=== PATIENT | female | born 1935 | race Caucasian/White ===

== ENCOUNTER 2025-01-31 10:48 | Inpatient (IN) | payer BC, MEDICARE ==
[~2025-01-31] VITALS: Ht 154.9 cm; Wt 32.9 kg
[2025-01-31 11:34] VITALS: TEMP 97.7
[2025-01-31 12:40] LABS: BASOPHILS % 0.5 % (0.0-1.0); HEMATOCRIT 38.3 % (34.2-44.1); HEMOGLOBIN 12.6 g/dL (12.0-16.0); LYMPHOCYTES # (AUTO) 0.8 (1.0-3.2); LYMPHOCYTES % 13.5 % (18.0-39.1); MEAN CORPUSCULAR HEMOGLOBIN 30.1 pg (28-32); MEAN CORPUSCULAR HGB CONC 32.9 g/dL (31-35); MEAN CORPUSCULAR VOLUME 91.6 fL (81-99); MONOCYTES # (AUTO) 0.2 (0.2-0.8); MONOCYTES % 3.7 % (4.4-11.3); NEUTROPHILS # (AUTO) 4.7 (2.1-6.9); NEUTROPHILS % 82.1 % (38.7-80.0); PLATELET COUNT 139 x10e3/uL (140-360); RED BLOOD COUNT 4.18 x10e6/uL (3.6-5.1); RED CELL DISTRIBUTION WIDTH 14.7 % (11.7-14.4); WHITE BLOOD COUNT 5.69 x10e3/uL (4.8-10.8)
[2025-01-31 12:46] LABS: INR 1.02
[2025-01-31 12:47] LABS: PARTIAL THROMBOPLASTIN TIME 27.5 seconds (23.8-35.5)
[2025-01-31 12:55] LABS: ALBUMIN 3.5 g/dL (3.5-5.0); CALCIUM 9.9 mg/dL (8.4-10.2); CREATININE, SERUM 0.82 mg/dL (0.57-1.11); MAGNESIUM 2.1 MG/DL (1.3-2.1); TOTAL PROTEIN 7.1 g/dL (6.5-8.1)
[2025-01-31 13:02] LABS: TROPONIN I 0.011 ng/mL (0-0.300)
[2025-01-31] MEDS: DEXTROSE 50% SYRINGE 50 ML IV STA (13:07)
[2025-01-31] MEDS: ONDANSETRON HCL INJ 2MG/ML 2ML 2 MG/ML VIAL IV STA (13:07)
[2025-01-31] MEDS: SODIUM CHLORIDE 0.9% 1000ML 1,000 ML IV STA (13:08)
[2025-01-31] MEDS ORDERED: DEXTROSE 50% SYRINGE 50 ML IV ONE (13:11)
[2025-01-31] MEDS ORDERED: ONDANSETRON HCL INJ 2MG/ML 2ML 2 MG/ML VIAL IV PRN ×2 (13:30→20:15)
[2025-01-31 14:16] VITALS: PULSE 50; RESP 18
[2025-01-31] MEDS: DEXTROSE 5%/0.45% SOD CHL 1,000 ML IV SCH (14:45)
[2025-01-31 15:40] VITALS: BP 112/68; PULSE 51; RESP 18; TEMP 97.4; O2SAT 99
[2025-01-31 16:00] VITALS: BP 126/64; PULSE 42; RESP 17; TEMP 97.4; O2SAT 99
[2025-01-31] MEDS ORDERED: MEMANTINE HCL10 MG PO (18:27)
[2025-01-31] MEDS ORDERED: DONEPEZIL HCL10 MG PO (18:27)
[2025-01-31] MEDS ORDERED: ACETAMINOPHEN 325 MG TAB PO PRN (20:15)
[2025-01-31] MEDS ORDERED: HYDRALAZINE HCL 20 MG/ML VIAL IV PRN (20:15)
[2025-01-31 21:00] VITALS: BP 136/50; PULSE 44; RESP 17; TEMP 97.6; O2SAT 100
[2025-01-31] MEDS: MEMANTINE 10 MG TAB PO SCH (21:43)
[2025-01-31] MEDS: DONEPEZIL HCL 5 MG TAB PO SCH (21:43)
[2025-02-01] VITALS (8 sets, daily range): BP systolic 105–138; BP diastolic 53–77; PULSE 46–56; RESP 17–18; TEMP 97–98.1; O2SAT 95–100
[2025-02-01 06:06] LABS: BASOPHILS % 0.6 % (0.0-1.0); EOSINOPHILS % 0.4 % (0.0-6.0); HEMATOCRIT 37.6 % (34.2-44.1); HEMOGLOBIN 12.5 g/dL (12.0-16.0); LYMPHOCYTES # (AUTO) 1.1 (1.0-3.2); LYMPHOCYTES % 20.1 % (18.0-39.1); MEAN CORPUSCULAR HEMOGLOBIN 30.5 pg (28-32); MEAN CORPUSCULAR HGB CONC 33.2 g/dL (31-35); MEAN CORPUSCULAR VOLUME 91.7 fL (81-99); MONOCYTES # (AUTO) 0.3 (0.2-0.8); MONOCYTES % 6.3 % (4.4-11.3); NEUTROPHILS # (AUTO) 3.9 (2.1-6.9); NEUTROPHILS % 72.4 % (38.7-80.0); PLATELET COUNT 110 x10e3/uL (140-360); RED CELL DISTRIBUTION WIDTH 14.6 % (11.7-14.4); WHITE BLOOD COUNT 5.42 x10e3/uL (4.8-10.8)
[2025-02-01 06:34] LABS: CHOL/HDL RATIO 3.6 (3.0-3.6); PHOSPHORUS 2.2 MG/DL (2.3-4.7)
[2025-02-01 06:36] LABS: ALBUMIN 3.1 g/dL (3.5-5.0); ALBUMIN/GLOBULIN RATIO 0.9 (0.8-2.0); ANION GAP 14.3 mmol/L (8-16); CALCIUM 9.1 mg/dL (8.4-10.2); CREATININE, SERUM 0.68 mg/dL (0.57-1.11); TOTAL PROTEIN 6.5 g/dL (6.5-8.1)
[2025-02-01 06:37] LABS: POTASSIUM 3.3 mmol/L (3.5-5.1)
[2025-02-01 06:59] LABS: FREE T4 (FREE THYROXINE) 0.89 ng/dL (0.8-1.8); THYROID STIMULATING HORMONE 0.196 uIU/mL (0.350-4.940)
[2025-02-01] MEDS: DEXTROSE 50% SYRINGE 50 ML IV STA (07:37)
[2025-02-01] MEDS: DEXTROSE 50% SYRINGE 50 ML IV ONE (08:56)
[2025-02-01] MEDS ORDERED: POTASSIUM PHOSPHATE 15 MM in SODIUM CHLORIDE 0.9% 250ML 250 ML IV SCH (10:00)
[2025-02-01] MEDS: POTASSIUM PHOSPHATE 15 MM in SODIUM CHLORIDE 0.9% 250ML 250 ML IV ONE (10:54)
[2025-02-01 13:43] LABS: BILIRUBIN,URINE SMALL (NEGATIVE); CLARITY,URINE SL CLOUDY (CLEAR); COLOR,URINE YELLOW (YELLOW); GLUCOSE, URINE 500 (NEGATIVE); KETONES,URINE TRACE (NEGATIVE); LEUKOCYTE ESTERASE ,URINE TRACE (NEGATIVE); NITRITE,URINE NEGATIVE (NEGATIVE); PH,URINE 5.5 (5 - 7); PROTEIN,URINE DIPSTICK NEGATIVE (NEGATIVE); URINE UROBILINOGEN 1 mg/dL (0.2 - 1)
[2025-02-01 14:01] LABS: BACTERIA,URINE FEW /HPF; EPITHELIAL CELLS,URINE MANY /LPF; RBC,URINE 0-5 /HPF (0-5)
[2025-02-01 14:02] LABS: MUCUS,URINE MANY
[2025-02-01] MEDS: DONEPEZIL HCL 5 MG TAB PO ONE (18:37)
[2025-02-01] MEDS: LORAZEPAM INJ 2 MG/ML VIAL IV ONE (23:24)
[2025-02-02] VITALS: BP 148/84; PULSE 59; RESP 17; TEMP 97.8; O2SAT 100
[2025-02-02 04:00] VITALS: BP 162/106; PULSE 102; RESP 18; TEMP 97.5; O2SAT 100; O2SAT 96
[2025-02-02 07:18] LABS: ANION GAP 13.1 mmol/L (8-16); CALCIUM 9.1 mg/dL (8.4-10.2); CREATININE, SERUM 0.68 mg/dL (0.57-1.11); PHOSPHORUS 1.6 MG/DL (2.3-4.7)
[2025-02-02 07:22] LABS: POTASSIUM 3.1 mmol/L (3.5-5.1)
[2025-02-02 09:15] VITALS: BP 140/93; PULSE 99; RESP 18; TEMP 97; O2SAT 100
[2025-02-02] MEDS: POTASSIUM CHLORIDE 20MEQ/100ML 100 ML IV ONE (15:29)
[2025-02-02 17:11] VITALS: BP 103/60; PULSE 55; RESP 19; TEMP 97.7; O2SAT 100
[2025-02-02] MEDS: MUPIROCIN 2% OINT 22 GM TUBE TOP SCH (20:56)
[2025-02-02] MEDS: DONEPEZIL HCL 5 MG TAB PO SCH (20:57)
[2025-02-03] VITALS (8 sets, daily range): BP systolic 95–139; BP diastolic 46–67; PULSE 52–95; RESP 17–18; TEMP 97.4–98; O2SAT 96–100
[2025-02-03 08:57] LABS: BASOPHILS % 0.5 % (0.0-1.0); EOSINOPHILS % 0.7 % (0.0-6.0); HEMATOCRIT 34.5 % (34.2-44.1); HEMOGLOBIN 11.8 g/dL (12.0-16.0); LYMPHOCYTES # (AUTO) 1.1 (1.0-3.2); LYMPHOCYTES % 25.6 % (18.0-39.1); MEAN CORPUSCULAR HEMOGLOBIN 30.6 pg (28-32); MEAN CORPUSCULAR HGB CONC 34.2 g/dL (31-35); MEAN CORPUSCULAR VOLUME 89.4 fL (81-99); MONOCYTES # (AUTO) 0.3 (0.2-0.8); MONOCYTES % 7.3 % (4.4-11.3); NEUTROPHILS # (AUTO) 2.7 (2.1-6.9); NEUTROPHILS % 65.7 % (38.7-80.0); PLATELET COUNT 106 x10e3/uL (140-360); RED BLOOD COUNT 3.86 x10e6/uL (3.6-5.1); RED CELL DISTRIBUTION WIDTH 14.5 % (11.7-14.4)
[2025-02-03 09:16] LABS: ANION GAP 10.9 mmol/L (8-16); BLOOD UREA NITROGEN < 5 mg/dL (7-26); CALCIUM 8.4 mg/dL (8.4-10.2); CARBON DIOXIDE 25 mmol/L (22-29); CHLORIDE 100 mmol/L (98-107); CREATININE, SERUM 0.66 mg/dL (0.57-1.11); EST GLOMERULAR FILTRATION RATE 84 ML/MIN (>=60); GLUCOSE 190 mg/dL (74-118); SODIUM 133 mmol/L (136-145)
[2025-02-03 09:20] LABS: BUN/CREATININE RATIO 8 (6-25); POTASSIUM 2.9 mmol/L (3.5-5.1)
[2025-02-03] MEDS: MUPIROCIN 2% OINT 22 GM TUBE TOP SCH (10:15)
[2025-02-03 12:51] LABS: MAGNESIUM 1.5 MG/DL (1.3-2.1); PHOSPHORUS 1.5 MG/DL (2.3-4.7)
[2025-02-03] MEDS: MAGNESIUM SULFATE 2GM/50ML 50 ML IV ONE (13:54)
[2025-02-03] MEDS: SODIUM PHOSPHATE 15 MMOL in SODIUM CHLORIDE 0.9% 250ML 250 ML IV ONE (14:50)
[2025-02-03] MEDS: MAGNESIUM SULF 1GRAM/DEXTROSE 100 ML IV ONE (15:37)
[2025-02-03] MEDS: POTASSIUM CHLORIDE 20MEQ/100ML 100 ML IV ONE ×2 (20:44→23:30)
[2025-02-04] VITALS (9 sets, daily range): BP systolic 137–142; BP diastolic 47–75; PULSE 60–109; RESP 17–18; TEMP 96.7–97.8; O2SAT 95–100
[2025-02-04 06:04] LABS: BASOPHILS % 0.4 % (0.0-1.0); EOSINOPHILS % 0.4 % (0.0-6.0); HEMATOCRIT 35.6 % (34.2-44.1); HEMOGLOBIN 12.3 g/dL (12.0-16.0); LYMPHOCYTES # (AUTO) 0.9 (1.0-3.2); LYMPHOCYTES % 18.7 % (18.0-39.1); MEAN CORPUSCULAR HEMOGLOBIN 30.7 pg (28-32); MEAN CORPUSCULAR HGB CONC 34.6 g/dL (31-35); MEAN CORPUSCULAR VOLUME 88.8 fL (81-99); MONOCYTES # (AUTO) 0.4 (0.2-0.8); MONOCYTES % 7.3 % (4.4-11.3); NEUTROPHILS # (AUTO) 3.6 (2.1-6.9); PLATELET COUNT 113 x10e3/uL (140-360); RED BLOOD COUNT 4.01 x10e6/uL (3.6-5.1); RED CELL DISTRIBUTION WIDTH 14.5 % (11.7-14.4); WHITE BLOOD COUNT 4.91 x10e3/uL (4.8-10.8)
[2025-02-04 06:24] LABS: ANION GAP 13.5 mmol/L (8-16); BLOOD UREA NITROGEN < 5 mg/dL (7-26); CALCIUM 8.4 mg/dL (8.4-10.2); CARBON DIOXIDE 25 mmol/L (22-29); CHLORIDE 105 mmol/L (98-107); CREATININE, SERUM 0.64 mg/dL (0.57-1.11); EST GLOMERULAR FILTRATION RATE 85 ML/MIN (>=60); GLUCOSE 101 mg/dL (74-118); MAGNESIUM 2.3 MG/DL (1.3-2.1); POTASSIUM 3.5 mmol/L (3.5-5.1); SODIUM 140 mmol/L (136-145)
[2025-02-04 06:43] LABS: BUN/CREATININE RATIO 8 (6-25)
[2025-02-04] MEDS: POTASSIUM CHLORIDE 10MEQ EA PO ONE (09:32)
[2025-02-04] MEDS: POTASSIUM PHOSPHATE 15 MM in SODIUM CHLORIDE 0.9% 250ML 250 ML IV ONE (10:57)
[2025-02-05] VITALS (13 sets, daily range): BP systolic 125–149; BP diastolic 70–88; PULSE 59–90; RESP 17–20; TEMP 96.6–98.8; O2SAT 97–100
[2025-02-05 06:44] LABS: BASOPHILS % 0.4 % (0.0-1.0); EOSINOPHILS % 0.6 % (0.0-6.0); HEMATOCRIT 34.1 % (34.2-44.1); HEMOGLOBIN 11.7 g/dL (12.0-16.0); LYMPHOCYTES % 20.9 % (18.0-39.1); MEAN CORPUSCULAR HEMOGLOBIN 30.7 pg (28-32); MEAN CORPUSCULAR HGB CONC 34.3 g/dL (31-35); MEAN CORPUSCULAR VOLUME 89.5 fL (81-99); MONOCYTES # (AUTO) 0.4 (0.2-0.8); MONOCYTES % 8.1 % (4.4-11.3); NEUTROPHILS # (AUTO) 3.2 (2.1-6.9); NEUTROPHILS % 68.3 % (38.7-80.0); PLATELET COUNT 104 x10e3/uL (140-360); RED BLOOD COUNT 3.81 x10e6/uL (3.6-5.1); RED CELL DISTRIBUTION WIDTH 14.5 % (11.7-14.4); WHITE BLOOD COUNT 4.69 x10e3/uL (4.8-10.8)
[2025-02-05 06:56] LABS: ALANINE AMINOTRANSFERASE 11 IU/L (0-55); ALKALINE PHOSPHATASE 45 IU/L (40-150); ANION GAP 10.3 mmol/L (8-16); BILIRUBIN,TOTAL 0.7 mg/dL (0.2-1.2); BLOOD UREA NITROGEN < 5 mg/dL (7-26); CALCIUM 8.6 mg/dL (8.4-10.2); CARBON DIOXIDE 26 mmol/L (22-29); CHLORIDE 104 mmol/L (98-107); EST GLOMERULAR FILTRATION RATE 86 ML/MIN (>=60); GLUCOSE 85 mg/dL (74-118); PHOSPHORUS 2.3 MG/DL (2.3-4.7); SODIUM 137 mmol/L (136-145)
[2025-02-05 07:05] LABS: BUN/CREATININE RATIO 8 (6-25); POTASSIUM 3.3 mmol/L (3.5-5.1)
[2025-02-05] MEDS: POTASSIUM CHLORIDE 20MEQ/100ML 100 ML IV ONE (09:54)
[2025-02-06] VITALS (13 sets, daily range): BP systolic 94–140; BP diastolic 50–81; PULSE 52–95; RESP 16–18; TEMP 97.3–98.8; O2SAT 97–100
[2025-02-07] VITALS (14 sets, daily range): BP systolic 108–129; BP diastolic 47–81; PULSE 45–62; RESP 15–18; TEMP 97.5–98.8; O2SAT 94–100
[2025-02-07 14:00] LABS: ANION GAP 11.5 mmol/L (8-16); CALCIUM 8.7 mg/dL (8.4-10.2); CREATININE, SERUM 0.68 mg/dL (0.57-1.11); POTASSIUM 3.5 mmol/L (3.5-5.1)
[2025-02-08] VITALS (17 sets, daily range): BP systolic 111–149; BP diastolic 53–72; PULSE 46–73; RESP 16–18; TEMP 97.2–97.8; O2SAT 98–100
[2025-02-08 06:39] LABS: BASOPHILS % 0.6 % (0.0-1.0); EOSINOPHILS % 0.6 % (0.0-6.0); HEMATOCRIT 32.3 % (34.2-44.1); LYMPHOCYTES # (AUTO) 1.2 (1.0-3.2); LYMPHOCYTES % 22.6 % (18.0-39.1); MEAN CORPUSCULAR HEMOGLOBIN 30.4 pg (28-32); MEAN CORPUSCULAR HGB CONC 34.1 g/dL (31-35); MEAN CORPUSCULAR VOLUME 89.2 fL (81-99); MONOCYTES # (AUTO) 0.4 (0.2-0.8); MONOCYTES % 8.1 % (4.4-11.3); NEUTROPHILS # (AUTO) 3.5 (2.1-6.9); NEUTROPHILS % 67.7 % (38.7-80.0); PLATELET COUNT 98 x10e3/uL (140-360); RED BLOOD COUNT 3.62 x10e6/uL (3.6-5.1); RED CELL DISTRIBUTION WIDTH 14.8 % (11.7-14.4); WHITE BLOOD COUNT 5.09 x10e3/uL (4.8-10.8)
[2025-02-08 07:22] LABS: ALBUMIN 2.9 g/dL (3.5-5.0); ANION GAP 12.1 mmol/L (8-16); CALCIUM 8.7 mg/dL (8.4-10.2); CREATININE, SERUM 0.68 mg/dL (0.57-1.11); MAGNESIUM 1.6 MG/DL (1.3-2.1); TOTAL PROTEIN 5.7 g/dL (6.5-8.1)
[2025-02-08 07:34] LABS: POTASSIUM 3.1 mmol/L (3.5-5.1)
[2025-02-08] MEDS: ENOXAPARIN SOD INJ 40 MG/0.4 ML SYR SC SCH (08:26)
[2025-02-08] MEDS ORDERED: CENTRAL TPN FORMULA 1 BAG IV SCH (20:00)
[2025-02-08] MEDS: CENTRAL TPN FORMULA 1 BAG IV SCH (20:57)
[2025-02-09] VITALS (15 sets, daily range): BP systolic 88–131; BP diastolic 52–69; PULSE 58–88; RESP 16–18; TEMP 97–98.1; O2SAT 95–100
[2025-02-09 09:46] LABS: BASOPHILS % 0.4 % (0.0-1.0); EOSINOPHILS % 0.2 % (0.0-6.0); HEMATOCRIT 32.1 % (34.2-44.1); HEMOGLOBIN 11.1 g/dL (12.0-16.0); LYMPHOCYTES # (AUTO) 0.7 (1.0-3.2); LYMPHOCYTES % 15.3 % (18.0-39.1); MEAN CORPUSCULAR HEMOGLOBIN 30.7 pg (28-32); MEAN CORPUSCULAR HGB CONC 34.6 g/dL (31-35); MEAN CORPUSCULAR VOLUME 88.7 fL (81-99); MONOCYTES # (AUTO) 0.4 (0.2-0.8); MONOCYTES % 8.3 % (4.4-11.3); NEUTROPHILS # (AUTO) 3.5 (2.1-6.9); NEUTROPHILS % 75.6 % (38.7-80.0); PLATELET COUNT 114 x10e3/uL (140-360); RED BLOOD COUNT 3.62 x10e6/uL (3.6-5.1); RED CELL DISTRIBUTION WIDTH 14.9 % (11.7-14.4); WHITE BLOOD COUNT 4.58 x10e3/uL (4.8-10.8)
[2025-02-09 12:42] LABS: ANION GAP 12.2 mmol/L (8-16); CREATININE, SERUM 0.62 mg/dL (0.57-1.11); POTASSIUM 3.2 mmol/L (3.5-5.1)
[2025-02-09 12:43] LABS: MAGNESIUM 1.9 MG/DL (1.3-2.1); PHOSPHORUS 2.1 MG/DL (2.3-4.7); TOTAL PROTEIN 5.9 g/dL (6.5-8.1)
[2025-02-09] MEDS: POTASSIUM CHLORIDE 20MEQ/100ML 100 ML IV ONE (13:51)
[2025-02-09] MEDS: POTASSIUM PHOSPHATE 15 MM in SODIUM CHLORIDE 0.9% 250ML 250 ML IV ONE (16:44)
[2025-02-10] VITALS (17 sets, daily range): BP systolic 99–140; BP diastolic 48–77; PULSE 58–69; RESP 16–18; TEMP 97.5–98.6; O2SAT 96–100
[2025-02-10 06:48] LABS: BASOPHILS % 0.6 % (0.0-1.0); EOSINOPHILS % 0.9 % (0.0-6.0); HEMATOCRIT 31.9 % (34.2-44.1); LYMPHOCYTES # (AUTO) 0.7 (1.0-3.2); LYMPHOCYTES % 21.4 % (18.0-39.1); MEAN CORPUSCULAR HEMOGLOBIN 30.7 pg (28-32); MEAN CORPUSCULAR HGB CONC 34.5 g/dL (31-35); MEAN CORPUSCULAR VOLUME 89.1 fL (81-99); MONOCYTES # (AUTO) 0.3 (0.2-0.8); MONOCYTES % 10.7 % (4.4-11.3); NEUTROPHILS # (AUTO) 2.1 (2.1-6.9); NEUTROPHILS % 66.1 % (38.7-80.0); PLATELET COUNT 110 x10e3/uL (140-360); RED BLOOD COUNT 3.58 x10e6/uL (3.6-5.1); RED CELL DISTRIBUTION WIDTH 15.1 % (11.7-14.4); WHITE BLOOD COUNT 3.18 x10e3/uL (4.8-10.8)
[2025-02-10 07:10] LABS: ALBUMIN 2.8 g/dL (3.5-5.0); ANION GAP 8.2 mmol/L (8-16); CALCIUM 8.5 mg/dL (8.4-10.2); CREATININE, SERUM 0.58 mg/dL (0.57-1.11); POTASSIUM 4.2 mmol/L (3.5-5.1); TOTAL PROTEIN 5.7 g/dL (6.5-8.1)
[2025-02-10 09:27] LABS: INR 1.09; PROTHROMBIN TIME 14.8 seconds (11.9-14.5)
[2025-02-11] VITALS (15 sets, daily range): BP systolic 93–143; BP diastolic 44–100; PULSE 59–106; RESP 16–20; TEMP 97.4–98.8; O2SAT 90–100
[2025-02-11 06:09] LABS: BASOPHILS % 0.4 % (0.0-1.0); EOSINOPHILS % 0.4 % (0.0-6.0); HEMATOCRIT 30.9 % (34.2-44.1); HEMOGLOBIN 10.5 g/dL (12.0-16.0); LYMPHOCYTES # (AUTO) 0.6 (1.0-3.2); LYMPHOCYTES % 13.3 % (18.0-39.1); MEAN CORPUSCULAR HEMOGLOBIN 30.3 pg (28-32); MEAN CORPUSCULAR VOLUME 89.3 fL (81-99); MONOCYTES # (AUTO) 0.5 (0.2-0.8); MONOCYTES % 10.2 % (4.4-11.3); NEUTROPHILS # (AUTO) 3.4 (2.1-6.9); NEUTROPHILS % 75.5 % (38.7-80.0); PLATELET COUNT 109 x10e3/uL (140-360); RED BLOOD COUNT 3.46 x10e6/uL (3.6-5.1); RED CELL DISTRIBUTION WIDTH 15.3 % (11.7-14.4)
[2025-02-11 06:44] LABS: ALBUMIN 2.7 g/dL (3.5-5.0); ANION GAP 10.3 mmol/L (8-16); BILIRUBIN,TOTAL 0.9 mg/dL (0.2-1.2); CALCIUM 8.6 mg/dL (8.4-10.2); CREATININE, SERUM 0.58 mg/dL (0.57-1.11); PHOSPHORUS 1.9 MG/DL (2.3-4.7); POTASSIUM 4.3 mmol/L (3.5-5.1); TOTAL PROTEIN 5.5 g/dL (6.5-8.1)
[2025-02-11] MEDS: SODIUM CHLORIDE 0.9% 1000ML 500 ML IV ONE (20:27)
[2025-02-12] VITALS (10 sets, daily range): BP systolic 99–128; BP diastolic 42–91; PULSE 51–77; RESP 18–21; TEMP 97.3–98.5; O2SAT 90–100
[2025-02-12] MEDS: CENTRAL TPN FORMULA 1 BAG IV SCH (20:16)
[2025-02-13] VITALS (8 sets, daily range): BP systolic 94–127; BP diastolic 44–87; PULSE 50–149; RESP 12–19; TEMP 97.5–98.3; O2SAT 91–100
[2025-02-13 10:36] LABS: BASOPHILS % 0.3 % (0.0-1.0); EOSINOPHILS % 0.2 % (0.0-6.0); HEMOGLOBIN 9.1 g/dL (12.0-16.0); LYMPHOCYTES # (AUTO) 0.6 (1.0-3.2); MEAN CORPUSCULAR HEMOGLOBIN 30.5 pg (28-32); MEAN CORPUSCULAR HGB CONC 32.5 g/dL (31-35); MONOCYTES # (AUTO) 0.5 (0.2-0.8); MONOCYTES % 8.7 % (4.4-11.3); NEUTROPHILS # (AUTO) 4.9 (2.1-6.9); NEUTROPHILS % 80.3 % (38.7-80.0); PLATELET COUNT 93 x10e3/uL (140-360); RED BLOOD COUNT 2.98 x10e6/uL (3.6-5.1); RED CELL DISTRIBUTION WIDTH 15.6 % (11.7-14.4); WHITE BLOOD COUNT 6.09 x10e3/uL (4.8-10.8)
[2025-02-13] MEDS ORDERED: FENTANYL CITRATE/PF 100MCG/2 ML INJ ONE (19:07)
[2025-02-13] MEDS ORDERED: EPHEDRINE SULFATE INJ 50 MG/ML VIAL ONE (19:07)
[2025-02-13] MEDS ORDERED: ESMOLOL HCL 100MG/10ML 10 MG/ML VIAL ONE (19:07)
[2025-02-13] MEDS ORDERED: PROPOFOL IV EMULSION 10 MG/ML 20 ML VIAL ONE (19:07)
[2025-02-13] MEDS: CENTRAL TPN FORMULA 1 BAG IV SCH (20:38)
[2025-02-14] VITALS (9 sets, daily range): BP systolic 86–98; BP diastolic 47–64; PULSE 55–117; RESP 17–20; TEMP 97.5–98.8; O2SAT 92–100
[2025-02-14 00:45] LABS: ANION GAP 13.6 mmol/L (8-16); CALCIUM 9.1 mg/dL (8.4-10.2); CREATININE, SERUM 0.68 mg/dL (0.57-1.11); POTASSIUM 4.6 mmol/L (3.5-5.1)
[2025-02-14 00:46] LABS: MAGNESIUM 1.9 MG/DL (1.3-2.1); PHOSPHORUS 2.2 MG/DL (2.3-4.7)
[2025-02-14] MEDS: SODIUM CHLORIDE 0.9% 250ML 250 ML IV ONE (01:23)
[2025-02-14] MEDS ORDERED: NACL IV ONE (02:30)
[2025-02-14] MEDS ORDERED: SODIUM PHOSPHATE IV ONE (02:30)
[2025-02-14] MEDS ORDERED: KETOROLAC TROMETHAMINE 30 MG/ML VIAL IM PRN (09:45)
[2025-02-14] MEDS: KETOROLAC TROMETHAMINE 30 MG/ML VIAL IV PRN (10:35)
[2025-02-14] MEDS: SODIUM PHOSPHATE 15 MMOL in SODIUM CHLORIDE 0.9% 250ML 250 ML IV ONE (10:36)
[2025-02-14] MEDS: SODIUM CHLORIDE 0.9% 1000ML 250 ML IV ONE (18:46)
[2025-02-15] VITALS (7 sets, daily range): BP systolic 97–125; BP diastolic 45–86; PULSE 18–70; RESP 18–19; TEMP 97.4–98.2; O2SAT 92–97
[2025-02-16] VITALS (7 sets, daily range): BP systolic 102–142; BP diastolic 49–73; PULSE 64–111; RESP 17–20; TEMP 97–98.4; O2SAT 95–100
[2025-02-16 06:55] LABS: BASOPHILS % 0.3 % (0.0-1.0); EOSINOPHILS % 0.4 % (0.0-6.0); HEMATOCRIT 25.4 % (34.2-44.1); HEMOGLOBIN 8.9 g/dL (12.0-16.0); LYMPHOCYTES # (AUTO) 0.6 (1.0-3.2); LYMPHOCYTES % 9.2 % (18.0-39.1); MEAN CORPUSCULAR HEMOGLOBIN 31.1 pg (28-32); MEAN CORPUSCULAR VOLUME 88.8 fL (81-99); MONOCYTES # (AUTO) 0.5 (0.2-0.8); MONOCYTES % 7.4 % (4.4-11.3); NEUTROPHILS # (AUTO) 5.6 (2.1-6.9); NEUTROPHILS % 82.3 % (38.7-80.0); PLATELET COUNT 135 x10e3/uL (140-360); RED BLOOD COUNT 2.86 x10e6/uL (3.6-5.1); RED CELL DISTRIBUTION WIDTH 15.8 % (11.7-14.4); WHITE BLOOD COUNT 6.75 x10e3/uL (4.8-10.8)
[2025-02-16 07:04] LABS: ALBUMIN/GLOBULIN RATIO 0.6 (0.8-2.0); ANION GAP 10.5 mmol/L (8-16); BILIRUBIN,TOTAL 0.5 mg/dL (0.2-1.2); CALCIUM 8.4 mg/dL (8.4-10.2); CREATININE, SERUM 0.59 mg/dL (0.57-1.11); POTASSIUM 4.5 mmol/L (3.5-5.1); TOTAL PROTEIN 5.1 g/dL (6.5-8.1)
[2025-02-16] MEDS: ALTEPLASE RECOMBINANT 2 MG/2 ML VIAL IV ONE (17:31)
[2025-02-17] VITALS (8 sets, daily range): BP systolic 97–116; BP diastolic 51–97; PULSE 51–68; RESP 16–19; TEMP 97–98; O2SAT 95–99
[2025-02-17] MEDS: ZIPRASIDONE 20 MG VIAL IM ONE (04:40)
[2025-02-17] MEDS: SODIUM CHLORIDE 0.9% 250ML 250 ML ONE (05:47)
[2025-02-17 07:25] LABS: PREALBUMIN 5 mg/dL (9-32)
[2025-02-18] VITALS (8 sets, daily range): BP systolic 108–125; BP diastolic 52–68; PULSE 63–73; RESP 14–18; TEMP 97–98; O2SAT 95–100
[2025-02-18 06:32] LABS: BASOPHILS % 0.7 % (0.0-1.0); EOSINOPHILS # (AUTO) 0.1 (0.0-0.4); EOSINOPHILS % 1.1 % (0.0-6.0); HEMATOCRIT 28.1 % (34.2-44.1); HEMOGLOBIN 9.4 g/dL (12.0-16.0); LYMPHOCYTES # (AUTO) 0.5 (1.0-3.2); LYMPHOCYTES % 9.5 % (18.0-39.1); MEAN CORPUSCULAR HEMOGLOBIN 30.2 pg (28-32); MEAN CORPUSCULAR HGB CONC 33.5 g/dL (31-35); MEAN CORPUSCULAR VOLUME 90.4 fL (81-99); MONOCYTES # (AUTO) 0.7 (0.2-0.8); MONOCYTES % 11.9 % (4.4-11.3); NEUTROPHILS # (AUTO) 4.3 (2.1-6.9); NEUTROPHILS % 76.4 % (38.7-80.0); PLATELET COUNT 199 x10e3/uL (140-360); RED BLOOD COUNT 3.11 x10e6/uL (3.6-5.1); RED CELL DISTRIBUTION WIDTH 15.5 % (11.7-14.4); WHITE BLOOD COUNT 5.56 x10e3/uL (4.8-10.8)
[2025-02-18 07:05] LABS: ALBUMIN 2.1 g/dL (3.5-5.0); ALBUMIN/GLOBULIN RATIO 0.6 (0.8-2.0); ANION GAP 11.2 mmol/L (8-16); BILIRUBIN,TOTAL 0.6 mg/dL (0.2-1.2); CALCIUM 8.4 mg/dL (8.4-10.2); CREATININE, SERUM 0.59 mg/dL (0.57-1.11); POTASSIUM 4.2 mmol/L (3.5-5.1); TOTAL PROTEIN 5.5 g/dL (6.5-8.1)
[2025-02-19] VITALS (8 sets, daily range): BP systolic 109–130; BP diastolic 37–113; PULSE 65–110; RESP 14–19; TEMP 96–97.6; O2SAT 91–99
[2025-02-19 06:42] LABS: BASOPHILS % 0.3 % (0.0-1.0); EOSINOPHILS % 0.4 % (0.0-6.0); HEMATOCRIT 26.8 % (34.2-44.1); HEMOGLOBIN 9.2 g/dL (12.0-16.0); LYMPHOCYTES # (AUTO) 0.6 (1.0-3.2); LYMPHOCYTES % 8.9 % (18.0-39.1); MEAN CORPUSCULAR HEMOGLOBIN 30.5 pg (28-32); MEAN CORPUSCULAR HGB CONC 34.3 g/dL (31-35); MEAN CORPUSCULAR VOLUME 88.7 fL (81-99); MONOCYTES # (AUTO) 0.8 (0.2-0.8); MONOCYTES % 11.4 % (4.4-11.3); NEUTROPHILS # (AUTO) 5.4 (2.1-6.9); NEUTROPHILS % 78.4 % (38.7-80.0); PLATELET COUNT 230 x10e3/uL (140-360); RED BLOOD COUNT 3.02 x10e6/uL (3.6-5.1); RED CELL DISTRIBUTION WIDTH 15.5 % (11.7-14.4); WHITE BLOOD COUNT 6.87 x10e3/uL (4.8-10.8)
[2025-02-19 07:15] LABS: ANION GAP 12.1 mmol/L (8-16); CALCIUM 8.6 mg/dL (8.4-10.2); CREATININE, SERUM 0.58 mg/dL (0.57-1.11); MAGNESIUM 1.6 MG/DL (1.3-2.1); PHOSPHORUS 2.7 MG/DL (2.3-4.7); POTASSIUM 4.1 mmol/L (3.5-5.1)
[2025-02-19] MEDS: ZINC SULFATE 220 MG CAP GT SCH (09:50)
[2025-02-19] MEDS: MAGNESIUM SULFATE 2GM/50ML 50 ML IV ONE (09:51)
[2025-02-19] MEDS ORDERED: RISPERIDONE 0.5 MG TAB PO PRN (18:15)
[2025-02-19] MEDS: RISPERIDONE 1 MG TAB PO SCH (18:38)
[2025-02-20] MEDS: ZIPRASIDONE 20 MG VIAL IM ONE ×2 (03:14)
[2025-02-20 07:55] VITALS: BP 117/51; PULSE 72; RESP 18; TEMP 97.5; O2SAT 98
[2025-02-20 08:27] VITALS: BP 117/51; PULSE 72; RESP 18; TEMP 97.5; O2SAT 98
[2025-02-20 12:35] VITALS: BP 109/46; PULSE 72; RESP 18; TEMP 97.3; O2SAT 100
[2025-02-20] MEDS: RISPERIDONE 1 MG TAB PO PRN (18:00)
[2025-02-20 18:17] VITALS: BP 121/53; PULSE 70; RESP 18; TEMP 98; O2SAT 100
[2025-02-20 20:00] VITALS: BP 115/53; PULSE 102; RESP 18; TEMP 98.8; O2SAT 100
[2025-02-21] VITALS (9 sets, daily range): BP systolic 102–137; BP diastolic 47–71; PULSE 50–112; RESP 18–20; TEMP 97.4–98.3; O2SAT 97–100
[2025-02-21] MEDS: ZIPRASIDONE 20 MG VIAL IM ONE (04:56)
[2025-02-21 06:35] LABS: BASOPHILS % 0.3 % (0.0-1.0); HEMATOCRIT 26.9 % (34.2-44.1); HEMOGLOBIN 9.2 g/dL (12.0-16.0); LYMPHOCYTES # (AUTO) 0.5 (1.0-3.2); LYMPHOCYTES % 6.1 % (18.0-39.1); MEAN CORPUSCULAR HEMOGLOBIN 30.9 pg (28-32); MEAN CORPUSCULAR HGB CONC 34.2 g/dL (31-35); MEAN CORPUSCULAR VOLUME 90.3 fL (81-99); MONOCYTES # (AUTO) 0.7 (0.2-0.8); MONOCYTES % 8.2 % (4.4-11.3); NEUTROPHILS # (AUTO) 7.5 (2.1-6.9); NEUTROPHILS % 84.9 % (38.7-80.0); PLATELET COUNT 262 x10e3/uL (140-360); RED BLOOD COUNT 2.98 x10e6/uL (3.6-5.1); RED CELL DISTRIBUTION WIDTH 15.1 % (11.7-14.4); WHITE BLOOD COUNT 8.81 x10e3/uL (4.8-10.8)
[2025-02-21 06:59] LABS: ANION GAP 12.9 mmol/L (8-16); CALCIUM 8.7 mg/dL (8.4-10.2); CREATININE, SERUM 0.58 mg/dL (0.57-1.11); POTASSIUM 3.9 mmol/L (3.5-5.1)
[2025-02-21] MEDS: ACETAMINOPHEN 325 MG/10 ML UDC GT PRN (13:08)
[2025-02-21] MEDS: CLONAZEPAM 1 MG TAB PO PRN (18:18)
[2025-02-22 03:33] VITALS: BP 104/56; PULSE 104; RESP 20; TEMP 97.7; O2SAT 100
[2025-02-22 08:32] VITALS: BP 111/60; PULSE 118; RESP 20; TEMP 98.6; O2SAT 97
[2025-02-22 12:52] VITALS: BP 97/54; PULSE 114; RESP 18; TEMP 98.4; O2SAT 98
[2025-02-22] MEDS ORDERED: CLONAZEPAM1 MG PO (15:12)
[2025-02-22] MEDS ORDERED: ASCORBIC ACID500 MG PO (15:12)
[2025-02-22] MEDS ORDERED: CAL MAG ZINC +1 EAC1 PO (15:12)
[2025-02-22] MEDS ORDERED: PROTONIX IV40 MG PO (15:12)
[2025-02-22 17:32] VITALS: BP 102/52; PULSE 122; RESP 20; TEMP 99.1; O2SAT 97
[2025-02-22] MEDS ORDERED: METOCLOPRAMIDE10 MG PO (17:52)
== END 2025-02-22 20:33 | DRG 640 ==
LOC: ER 11:45 → ERHOLD 13:27 → MED/SURG2 15:40
PROVIDERS: ADMIT Internal Medicine; ATTEND Internal Medicine
PROC: 02HV33Z Insertion of Infusion Device into Superior Vena Cava, Percutaneous Approach (ICD-10-PCS; principal; 2025-02-01)
PROC: B548ZZA Ultrasonography of Superior Vena Cava, Guidance (ICD-10-PCS; 2025-02-01)
PROC: 3E0336Z Introduction of Nutritional Substance into Peripheral Vein, Percutaneous Approach (ICD-10-PCS; 2025-02-08)
PROC: 0DH63UZ Insertion of Feeding Device into Stomach, Percutaneous Approach (ICD-10-PCS; 2025-02-13)
PROC: 3E0436Z Introduction of Nutritional Substance into Central Vein, Percutaneous Approach (ICD-10-PCS; 2025-02-13)
DX: E43 Unspecified severe protein-calorie malnutrition (principal); G93.41 Metabolic encephalopathy; Z68.1 Body mass index [BMI] 19.9 or less, adult; R64 Cachexia; F02.C11 Dementia in other diseases classified elsewhere, severe, with agitation; E11.649 Type 2 diabetes mellitus with hypoglycemia without coma; R62.7 Adult failure to thrive; E86.0 Dehydration; Z78.1 Physical restraint status; L89.151 Pressure ulcer of sacral region, stage 1; G30.9 Alzheimer's disease, unspecified; K20.90 Esophagitis, unspecified without bleeding; K44.9 Diaphragmatic hernia without obstruction or gangrene; K29.50 Unspecified chronic gastritis without bleeding; Z71.3 Dietary counseling and surveillance; E83.42 Hypomagnesemia; R00.1 Bradycardia, unspecified; I44.0 Atrioventricular block, first degree; K76.9 Liver disease, unspecified; E87.6 Hypokalemia; E83.39 Other disorders of phosphorus metabolism; F09 Unspecified mental disorder due to known physiological condition; I08.3 Combined rheumatic disorders of mitral, aortic and tricuspid valves; K80.20 Calculus of gallbladder without cholecystitis without obstruction; K57.30 Diverticulosis of large intestine without perforation or abscess without bleeding; R53.81 Other malaise; Z71.81 Spiritual or religious counseling; Z79.899 Other long term (current) drug therapy
CPT/HCPCS: 36415; 36569; 43246; 71045; 74178; 74470; 80048; 80053; 80061; 81001; 82948; 83036; 83735; 84100; 84134; 84439; 84443; 84478; 84484; 84630; 85025; 85610; 85730; 87086; 93005; 93306; 99252; 99284; J0690; J1650; J1885; J2060; J2405; J2470; J2997; J3475; J3480; J3486; J7030; J7050; J7799

== ENCOUNTER 2025-02-22 21:42 | Inpatient (IN) | payer MEDICARE ==
[~2025-02-22] VITALS: Ht 154.9 cm; Wt 32.7 kg
[~2025-02-22 21:42] MED LIST: ASCORBIC ACID500 MG PO; CAL MAG ZINC +1 EAC1 PO; CLONAZEPAM1 MG PO; DONEPEZIL HCL10 MG PO; MEMANTINE HCL10 MG PO; METOCLOPRAMIDE10 MG PO; PROTONIX IV40 MG PO
[2025-02-22 21:45] VITALS: PULSE 110; RESP 18; O2SAT 100
[2025-02-22 22:18] LABS: BASOPHILS % 0.2 % (0.0-1.0); HEMATOCRIT 26.2 % (34.2-44.1); LYMPHOCYTES # (AUTO) 0.6 (1.0-3.2); LYMPHOCYTES % 4.8 % (18.0-39.1); MEAN CORPUSCULAR HEMOGLOBIN 30.8 pg (28-32); MEAN CORPUSCULAR HGB CONC 34.4 g/dL (31-35); MEAN CORPUSCULAR VOLUME 89.7 fL (81-99); MONOCYTES # (AUTO) 0.8 (0.2-0.8); MONOCYTES % 6.2 % (4.4-11.3); NEUTROPHILS # (AUTO) 10.8 (2.1-6.9); NEUTROPHILS % 88.3 % (38.7-80.0); PLATELET COUNT 264 x10e3/uL (140-360); RED BLOOD COUNT 2.92 x10e6/uL (3.6-5.1); RED CELL DISTRIBUTION WIDTH 14.9 % (11.7-14.4); WHITE BLOOD COUNT 12.26 x10e3/uL (4.8-10.8)
[2025-02-22] MEDS: ACETAMINOPHEN 1000 MG/100 ML IV ONE (22:25)
[2025-02-22 22:26] LABS: BILIRUBIN,URINE NEGATIVE (NEGATIVE); CLARITY,URINE CLOUDY (CLEAR); COLOR,URINE YELLOW (YELLOW); GLUCOSE, URINE NEGATIVE (NEGATIVE); KETONES,URINE NEGATIVE (NEGATIVE); LEUKOCYTE ESTERASE ,URINE 2+ (NEGATIVE); NITRITE,URINE POSITIVE (NEGATIVE); PH,URINE 7 (5 - 7); PROTEIN,URINE DIPSTICK 2+ (NEGATIVE); URINE UROBILINOGEN >=8 mg/dL (0.2 - 1)
[2025-02-22] MEDS: SODIUM CHLORIDE 0.9% 1000ML 1,000 ML IV ONE (22:26)
[2025-02-22 22:31] LABS: INR 1.33; PROTHROMBIN TIME 17.2 seconds (11.9-14.5)
[2025-02-22 22:39] LABS: CORONAVIRUS COVID-19 AG NEGATIVE (NEGATIVE); INFLUENZA A AG NEGATIVE (NEGATIVE); INFLUENZA B AG NEGATIVE (NEGATIVE)
[2025-02-22 22:40] LABS: ALBUMIN 2.1 g/dL (3.5-5.0); ALBUMIN/GLOBULIN RATIO 0.6 (0.8-2.0); ANION GAP 11.1 mmol/L (8-16); BILIRUBIN,TOTAL 0.7 mg/dL (0.2-1.2); CALCIUM 8.2 mg/dL (8.4-10.2); POTASSIUM 4.1 mmol/L (3.5-5.1); TOTAL PROTEIN 5.4 g/dL (6.5-8.1)
[2025-02-22 22:41] LABS: BACTERIA,URINE MANY /HPF; EPITHELIAL CELLS,URINE FEW /LPF; WBC,URINE (MAN) >50 /HPF (0-5)
[2025-02-22 22:46] LABS: TROPONIN I 0.02 ng/mL (0-0.300)
[2025-02-22 23:00] LABS: CREATININE, SERUM 0.68 mg/dL (0.57-1.11)
[2025-02-22] MEDS ORDERED: ONDANSETRON HCL INJ 2MG/ML 2ML 2 MG/ML VIAL IV PRN (23:45)
[2025-02-22] MEDS ORDERED: ACETAMINOPHEN 325 MG/10 ML UDC GT PRN (23:45)
[2025-02-23] VITALS (7 sets, daily range): BP systolic 109–118; BP diastolic 43–89; PULSE 61–116; RESP 16–19; TEMP 97.3–97.8; O2SAT 91–97
[2025-02-23] MEDS: SODIUM CHLORIDE 0.9% 1000ML 1,000 ML IV ONE (01:56)
[2025-02-23 07:57] LABS: BASOPHILS % 0.3 % (0.0-1.0); EOSINOPHILS % 0.4 % (0.0-6.0); HEMATOCRIT 28.4 % (34.2-44.1); HEMOGLOBIN 9.2 g/dL (12.0-16.0); LYMPHOCYTES # (AUTO) 1.3 (1.0-3.2); MEAN CORPUSCULAR HEMOGLOBIN 30.4 pg (28-32); MEAN CORPUSCULAR HGB CONC 32.4 g/dL (31-35); MEAN CORPUSCULAR VOLUME 93.7 fL (81-99); MONOCYTES # (AUTO) 0.7 (0.2-0.8); MONOCYTES % 7.7 % (4.4-11.3); NEUTROPHILS # (AUTO) 7.1 (2.1-6.9); NEUTROPHILS % 77.3 % (38.7-80.0); PLATELET COUNT 272 x10e3/uL (140-360); RED BLOOD COUNT 3.03 x10e6/uL (3.6-5.1); WHITE BLOOD COUNT 9.19 x10e3/uL (4.8-10.8)
[2025-02-23 08:30] LABS: ALBUMIN/GLOBULIN RATIO 0.6 (0.8-2.0); ANION GAP 11.4 mmol/L (8-16); BILIRUBIN,TOTAL 0.7 mg/dL (0.2-1.2); CALCIUM 8.4 mg/dL (8.4-10.2); CREATININE, SERUM 0.59 mg/dL (0.57-1.11); POTASSIUM 4.4 mmol/L (3.5-5.1); TOTAL PROTEIN 5.1 g/dL (6.5-8.1)
[2025-02-23 08:48] LABS: TROPONIN I 0.02 ng/mL (0-0.300)
[2025-02-23] MEDS: CEFTRIAXONE 2 GM in SODIUM CHLORIDE 0.9% 100 ML IV SCH (09:39)
[2025-02-23] MEDS ORDERED: CLONAZEPAM 1 MG TAB PO PRN (11:30)
[2025-02-23] MEDS: VIT D3 PO SCH (12:00)
[2025-02-23] MEDS: CA CARB PO SCH (12:00)
[2025-02-23] MEDS: MAG OX PO SCH (12:00)
[2025-02-23] MEDS: ZN OXIDE PO SCH (12:00)
[2025-02-23] MEDS: ASCORBIC ACID 500 MG TAB PO SCH (13:27)
[2025-02-23] MEDS ORDERED: METOCLOPRAMIDE HCL 10 MG TAB PO SCH (15:00)
[2025-02-23 16:14] LABS: TROPONIN I 0.02 ng/mL (0-0.300)
[2025-02-23] MEDS ORDERED: DONEPEZIL HCL 5 MG TAB PO SCH (21:00)
[2025-02-23] MEDS ORDERED: MEMANTINE 10 MG TAB PO SCH (21:00)
[2025-02-24] MEDS ORDERED: PANTOPRAZOLE SOD 40 MG TABEC PO SCH (07:30)
== END 2025-02-23 19:22 | DRG 689 ==
LOC: ER 21:56 → ERHOLD 23:46 → MED/SURG3 02-23 02:18
PROVIDERS: ADMIT Internal Medicine; ATTEND Internal Medicine
PROC: 02HV33Z Insertion of Infusion Device into Superior Vena Cava, Percutaneous Approach (ICD-10-PCS; principal; 2025-02-23)
DX: N39.0 Urinary tract infection, site not specified (principal); E43 Unspecified severe protein-calorie malnutrition; F02.84 Dementia in other diseases classified elsewhere, unspecified severity, with anxiety; Z68.1 Body mass index [BMI] 19.9 or less, adult; G30.9 Alzheimer's disease, unspecified; E11.9 Type 2 diabetes mellitus without complications; Z11.52 Encounter for screening for COVID-19
CPT/HCPCS: 36415; 36569; 71045; 80053; 81001; 82550; 82948; 83605; 84484; 85025; 85610; 85730; 87040; 87071; 87086; 87186; 87205; 93005; 94799; 99285; J0696; J7030; J7050

== ENCOUNTER 2025-02-24 15:30 | Emergency (ER) | payer MEDICARE ==
[~2025-02-24] VITALS: Ht 154.9 cm; Wt 32.7 kg
[2025-02-24 15:46] VITALS: PULSE 77; RESP 16; TEMP 98.3
[2025-02-24 17:35] VITALS: BP 114/48; PULSE 76; RESP 16; TEMP 98.3; O2SAT 98
[2025-02-25] MEDS ORDERED: PANTOPRAZOLE SO40 MG PO (04:49)
[2025-02-25] MEDS ORDERED: CEFTRIAXON1 GM/50 M1 IV (05:00)
[2025-02-25] MEDS ORDERED: ACETAMINOP160 MG/54 PO (05:09)
== END 2025-02-24 17:37 | disposition home or self-care (01) ==
LOC: ER 15:37
DX: Z43.1 Encounter for attention to gastrostomy (principal); E11.9 Type 2 diabetes mellitus without complications; F41.9 Anxiety disorder, unspecified; G30.9 Alzheimer's disease, unspecified; F02.80 Dementia in other diseases classified elsewhere, unspecified severity, without behavioral disturbance, psychotic disturbance, mood disturbance, and anxiety
CPT/HCPCS: 99283

== ENCOUNTER 2025-02-25 00:37 | Inpatient (IN) | payer MEDICARE ==
[2025-02-25] VITALS (11 sets, daily range): BP systolic 115–139; BP diastolic 47–66; PULSE 74–90; RESP 16–18; TEMP 97.6–98.9; O2SAT 94–98
[~2025-02-25] VITALS: Ht 154.9 cm; Wt 32.7 kg
[2025-02-25] MEDS ORDERED: ONDANSETRON HCL INJ 2MG/ML 2ML 2 MG/ML VIAL IV PRN (02:15)
[2025-02-25] MEDS: HALOPERIDOL LACTATE 5 MG/ML VIAL IV ONE (03:08)
[2025-02-25] MEDS: SODIUM CHLORIDE 0.9% 1000ML 1,000 ML IV SCH (03:08)
[2025-02-25 03:29] LABS: BASOPHILS % 0.2 % (0.0-1.0); EOSINOPHILS % 0.3 % (0.0-6.0); HEMATOCRIT 25.9 % (34.2-44.1); HEMOGLOBIN 8.7 g/dL (12.0-16.0); LYMPHOCYTES # (AUTO) 0.7 (1.0-3.2); LYMPHOCYTES % 7.4 % (18.0-39.1); MEAN CORPUSCULAR HGB CONC 33.6 g/dL (31-35); MEAN CORPUSCULAR VOLUME 89.3 fL (81-99); MONOCYTES # (AUTO) 0.7 (0.2-0.8); MONOCYTES % 7.9 % (4.4-11.3); NEUTROPHILS # (AUTO) 7.8 (2.1-6.9); NEUTROPHILS % 83.8 % (38.7-80.0); PLATELET COUNT 322 x10e3/uL (140-360); RED CELL DISTRIBUTION WIDTH 14.5 % (11.7-14.4); WHITE BLOOD COUNT 9.36 x10e3/uL (4.8-10.8)
[2025-02-25 03:38] LABS: INR 1.26; PROTHROMBIN TIME 16.5 seconds (11.9-14.5)
[2025-02-25 03:39] LABS: PARTIAL THROMBOPLASTIN TIME 36.4 seconds (23.8-35.5)
[2025-02-25 03:44] LABS: ANION GAP 12.5 mmol/L (8-16); CALCIUM 8.5 mg/dL (8.4-10.2); CREATININE, SERUM 0.45 mg/dL (0.57-1.11); POTASSIUM 3.5 mmol/L (3.5-5.1)
[2025-02-25] MEDS ORDERED: PANTOPRAZOLE SO40 MG PO (04:49)
[2025-02-25] MEDS ORDERED: CEFTRIAXON1 GM/50 M1 IV (05:00)
[2025-02-25] MEDS ORDERED: ACETAMINOP160 MG/54 PO (05:09)
[2025-02-25] MEDS: DEXTROSE 50% SYRINGE 50 ML IV PRN (21:48)
[2025-02-25] MEDS: DEXTROSE 5%/0.45% SOD CHL 1,000 ML IV SCH (21:49)
[2025-02-26] VITALS (13 sets, daily range): BP systolic 101–120; BP diastolic 52–58; PULSE 67–88; RESP 17–20; TEMP 97.6–98.6; O2SAT 93–100
[2025-02-26] MEDS: INSULIN LISPRO 100 UNIT/1 ML 3ML VIAL SQ SCH (07:30)
[2025-02-26] MEDS ORDERED: DIATRIZOATE MEGL/DIATRIZOA SOD 30 ML BTL PO ONE (16:23)
[2025-02-27] VITALS (11 sets, daily range): BP systolic 115–127; BP diastolic 53–73; PULSE 72–97; RESP 17–20; TEMP 97.4–99.3; O2SAT 94–100
[2025-02-27] MEDS: LORAZEPAM INJ 2 MG/ML VIAL IV PRN (02:06)
[2025-02-28] VITALS (9 sets, daily range): BP systolic 98–140; BP diastolic 62–78; PULSE 76–98; RESP 17–20; TEMP 97.9–98.6; O2SAT 94–100
[2025-02-28] MEDS: ACETAMINOPHEN INFANTS' 160 MG/5 ML BTL PO SCH (06:00)
[2025-02-28 06:38] LABS: BASOPHILS % 0.6 % (0.0-1.0); EOSINOPHILS % 0.6 % (0.0-6.0); HEMATOCRIT 25.6 % (34.2-44.1); HEMOGLOBIN 8.6 g/dL (12.0-16.0); LYMPHOCYTES # (AUTO) 0.8 (1.0-3.2); LYMPHOCYTES % 16.1 % (18.0-39.1); MEAN CORPUSCULAR HGB CONC 33.6 g/dL (31-35); MEAN CORPUSCULAR VOLUME 89.2 fL (81-99); MONOCYTES # (AUTO) 0.7 (0.2-0.8); MONOCYTES % 13.3 % (4.4-11.3); NEUTROPHILS # (AUTO) 3.4 (2.1-6.9); PLATELET COUNT 316 x10e3/uL (140-360); RED BLOOD COUNT 2.87 x10e6/uL (3.6-5.1); RED CELL DISTRIBUTION WIDTH 14.1 % (11.7-14.4); WHITE BLOOD COUNT 4.98 x10e3/uL (4.8-10.8)
[2025-02-28 06:54] LABS: ANION GAP 10.2 mmol/L (8-16); CALCIUM 7.9 mg/dL (8.4-10.2); CREATININE, SERUM 0.49 mg/dL (0.57-1.11); MAGNESIUM 1.7 MG/DL (1.3-2.1)
[2025-02-28 06:58] LABS: POTASSIUM 3.2 mmol/L (3.5-5.1)
[2025-02-28] MEDS: VIT D3 PO SCH (08:00)
[2025-02-28] MEDS: MAG OX PO SCH (08:00)
[2025-02-28] MEDS: CA CARB PO SCH (08:00)
[2025-02-28] MEDS: ZN OXIDE PO SCH (08:00)
[2025-02-28] MEDS: [UNRECOGNIZED DRUG - OTHER] PO SCH (08:00)
[2025-02-28] MEDS: PANTOPRAZOLE SOD 40 MG TABEC PO SCH (08:05)
[2025-02-28] MEDS: ASCORBIC ACID 500 MG TAB PO SCH (08:05)
[2025-02-28] MEDS: METOCLOPRAMIDE HCL 10 MG TAB PO SCH (08:05)
[2025-02-28] MEDS: KCL 20 MEQ PACKET/ ORAL SOLN NG STA (09:32)
[2025-02-28] MEDS: LORAZEPAM INJ 2 MG/ML VIAL IV PRN (11:59)
[2025-02-28] MEDS: ACETAMINOPHEN 325 MG/10 ML UDC PO SCH (11:59)
[2025-02-28] MEDS: MEMANTINE 10 MG TAB PO SCH (20:45)
[2025-02-28] MEDS: HEPARIN SOD (PORCINE) 5,000 UNIT/ML VIAL SC SCH (20:50)
[2025-02-28] MEDS: CLONAZEPAM 1 MG TAB PO PRN (21:57)
[2025-03-01] VITALS (8 sets, daily range): BP systolic 93–137; BP diastolic 46–66; PULSE 75–96; RESP 17–20; TEMP 97.5–98; O2SAT 98–100
[2025-03-02] VITALS (8 sets, daily range): BP systolic 90–149; BP diastolic 51–70; PULSE 74–103; RESP 16–20; TEMP 97.4–98.6; O2SAT 93–100
[2025-03-03] VITALS (8 sets, daily range): BP systolic 99–145; BP diastolic 46–79; PULSE 92–101; RESP 18–20; TEMP 97–98; O2SAT 91–95
[2025-03-03 07:29] LABS: ANION GAP 10.8 mmol/L (8-16); CALCIUM 8.3 mg/dL (8.4-10.2); CREATININE, SERUM 0.52 mg/dL (0.57-1.11); POTASSIUM 3.8 mmol/L (3.5-5.1)
[2025-03-03 07:47] LABS: % IRON SATURATION 32 % (15-50); IRON 44 ug/dL (50-170); TOTAL IRON BINDING CAPACITY 137 ug/dL (261-478); TRANSFERRIN 98 mg/dL (180-382)
[2025-03-04] VITALS: BP 125/72; PULSE 96; RESP 18; TEMP 97; O2SAT 94
[2025-03-04 04:00] VITALS: BP 115/61; PULSE 88; RESP 18; TEMP 97.7; O2SAT 94
[2025-03-04 06:38] LABS: BASOPHILS % 0.4 % (0.0-1.0); EOSINOPHILS # (AUTO) 0.1 (0.0-0.4); EOSINOPHILS % 1.1 % (0.0-6.0); HEMATOCRIT 26.4 % (34.2-44.1); HEMOGLOBIN 8.5 g/dL (12.0-16.0); LYMPHOCYTES # (AUTO) 0.9 (1.0-3.2); LYMPHOCYTES % 19.4 % (18.0-39.1); MEAN CORPUSCULAR HEMOGLOBIN 29.5 pg (28-32); MEAN CORPUSCULAR HGB CONC 32.2 g/dL (31-35); MEAN CORPUSCULAR VOLUME 91.7 fL (81-99); MONOCYTES # (AUTO) 0.4 (0.2-0.8); MONOCYTES % 9.5 % (4.4-11.3); NEUTROPHILS # (AUTO) 3.1 (2.1-6.9); NEUTROPHILS % 69.2 % (38.7-80.0); PLATELET COUNT 295 x10e3/uL (140-360); RED BLOOD COUNT 2.88 x10e6/uL (3.6-5.1); RED CELL DISTRIBUTION WIDTH 14.3 % (11.7-14.4); WHITE BLOOD COUNT 4.53 x10e3/uL (4.8-10.8)
[2025-03-04 07:00] LABS: ALBUMIN 2.2 g/dL (3.5-5.0); ALBUMIN/GLOBULIN RATIO 0.5 (0.8-2.0); ANION GAP 11.1 mmol/L (8-16); BILIRUBIN,TOTAL 0.4 mg/dL (0.2-1.2); CALCIUM 8.6 mg/dL (8.4-10.2); CREATININE, SERUM 0.56 mg/dL (0.57-1.11); POTASSIUM 4.1 mmol/L (3.5-5.1); TOTAL PROTEIN 6.5 g/dL (6.5-8.1)
[2025-03-04] MEDS: IRON SUCROSE 100 MG in SODIUM CHLORIDE 0.9% 100 ML IV SCH (08:18)
[2025-03-04 08:35] VITALS: BP 111/57; PULSE 78; RESP 17; TEMP 97.4; O2SAT 96
[2025-03-04 09:00] VITALS: BP 111/57; PULSE 78; RESP 17; TEMP 97.4; O2SAT 96
[2025-03-04 12:00] VITALS: BP 103/58; PULSE 70; RESP 19; TEMP 98; O2SAT 96
[2025-03-04] MEDS: DOXYCYCLINE HYCLATE TABLET 100 MG TAB PO SCH (13:43)
[2025-03-04 16:25] VITALS: BP 128/70; PULSE 98; RESP 18; TEMP 98.1; O2SAT 96
== END 2025-03-04 18:28 | DRG 393 ==
LOC: ER 01:48 → ERHOLD 02:04 → MED/SURG3 03:29 → OBSVTOIN 02-26 10:00
PROVIDERS: ADMIT Internal Medicine; ATTEND Internal Medicine
PROC: 0DH68UZ Insertion of Feeding Device into Stomach, Via Natural or Artificial Opening Endoscopic (ICD-10-PCS; principal; 2025-02-25 15:38)
PROC: 3E0G76Z Introduction of Nutritional Substance into Upper GI, Via Natural or Artificial Opening (ICD-10-PCS; 2025-02-28)
DX: Z43.1 Encounter for attention to gastrostomy (principal); E43 Unspecified severe protein-calorie malnutrition; G93.41 Metabolic encephalopathy; F02.811 Dementia in other diseases classified elsewhere, unspecified severity, with agitation; Z68.1 Body mass index [BMI] 19.9 or less, adult; R64 Cachexia; K29.50 Unspecified chronic gastritis without bleeding; K20.90 Esophagitis, unspecified without bleeding; K44.9 Diaphragmatic hernia without obstruction or gangrene; R13.10 Dysphagia, unspecified; L89.151 Pressure ulcer of sacral region, stage 1; E11.9 Type 2 diabetes mellitus without complications; D63.8 Anemia in other chronic diseases classified elsewhere; G30.9 Alzheimer's disease, unspecified; R62.7 Adult failure to thrive; R26.9 Unspecified abnormalities of gait and mobility; K76.9 Liver disease, unspecified; Z79.899 Other long term (current) drug therapy
CPT/HCPCS: 36415; 43246; 71045; 74018; 74470; 80048; 80053; 82607; 82746; 82948; 83540; 83735; 84100; 84466; 85025; 85045; 85610; 85730; 94799; 99252; 99284; G0378; J0690; J0696; J1630; J1644; J1756; J2060; J2470; J7030; J7050; J7799; Q9963

== ENCOUNTER 2025-03-05 04:04 | Inpatient (IN) | payer MEDICARE ==
[2025-03-05] VITALS (11 sets, daily range): BP systolic 90–142; BP diastolic 46–74; PULSE 69–120; RESP 16–20; TEMP 97.4–100; O2SAT 91–98
[~2025-03-05] VITALS: Ht 167.6 cm; Wt 32.7 kg
[~2025-03-05 04:04] MED LIST changes: +ACETAMINOP160 MG/54 PO; +CEFTRIAXON1 GM/50 M1 IV; +PANTOPRAZOLE SO40 MG PO
[2025-03-05 05:02] LABS: BASOPHILS # (AUTO) 0.1 (0.0-0.1); BASOPHILS % 0.4 % (0.0-1.0); EOSINOPHILS % 0.1 % (0.0-6.0); HEMATOCRIT 26.9 % (34.2-44.1); HEMOGLOBIN 8.8 g/dL (12.0-16.0); LYMPHOCYTES % 7.6 % (18.0-39.1); MEAN CORPUSCULAR HEMOGLOBIN 29.9 pg (28-32); MEAN CORPUSCULAR HGB CONC 32.7 g/dL (31-35); MEAN CORPUSCULAR VOLUME 91.5 fL (81-99); MONOCYTES # (AUTO) 0.9 (0.2-0.8); MONOCYTES % 6.7 % (4.4-11.3); NEUTROPHILS # (AUTO) 11.4 (2.1-6.9); NEUTROPHILS % 84.9 % (38.7-80.0); PLATELET COUNT 318 x10e3/uL (140-360); RED BLOOD COUNT 2.94 x10e6/uL (3.6-5.1); RED CELL DISTRIBUTION WIDTH 14.4 % (11.7-14.4); WHITE BLOOD COUNT 13.38 x10e3/uL (4.8-10.8)
[2025-03-05 05:38] LABS: INR 1.09; PROTHROMBIN TIME 14.8 seconds (11.9-14.5)
[2025-03-05 05:39] LABS: PARTIAL THROMBOPLASTIN TIME 34.1 seconds (23.8-35.5)
[2025-03-05 05:41] LABS: ANION GAP 14.1 mmol/L (8-16); CALCIUM 8.8 mg/dL (8.4-10.2); CREATININE, SERUM 0.55 mg/dL (0.57-1.11); POTASSIUM 4.1 mmol/L (3.5-5.1)
[2025-03-05] MEDS: INSULIN REGULAR, HUMAN 100 UNIT/1 ML SQ SCH (07:30)
[2025-03-05] MEDS: SODIUM CHLORIDE 0.9% 1000ML 1,000 ML IV SCH (08:15)
[2025-03-05] MEDS ORDERED: IOPAMIDOL 370 MG/ML 100 ML INFUS..BTL INJ ONE (16:40)
[2025-03-05] MEDS ORDERED: LIDOCAINE HCL 1% 30ML-PF VIAL ONE (16:40)
[2025-03-05] MEDS ORDERED: SODIUM CHLORIDE 0.9% 250ML 250 ML ONE ×2 (16:40→16:56)
[2025-03-05] MEDS ORDERED: FENTANYL CITRATE/PF 100MCG/2 ML INJ ONE (16:56)
[2025-03-05] MEDS ORDERED: MIDAZOLAM HCL 2 MG/2 ML VIAL ONE (16:56)
[2025-03-06] VITALS (7 sets, daily range): BP systolic 95–106; BP diastolic 44–67; PULSE 69–95; RESP 16–18; TEMP 98–98.4; O2SAT 94–99
[2025-03-06] MEDS: DEXTROSE 50% SYRINGE 50 ML IV PRN (03:20)
[2025-03-06] MEDS: DEXTROSE 5%/0.9% SOD CHL 1,000 ML IV SCH (20:43)
[2025-03-07] VITALS (8 sets, daily range): BP systolic 93–148; BP diastolic 50–66; PULSE 62–103; RESP 16–18; TEMP 97.5–98.6; O2SAT 90–100
[2025-03-07] MEDS ORDERED: PROPOFOL IV EMULSION 10 MG/ML 20 ML VIAL ONE ×2 (08:32→09:25)
[2025-03-07] MEDS ORDERED: LIDOCAINE HCL 2% LOCAL INJ 5 ML SDV VIAL INJ ONE ×2 (08:32→09:24)
[2025-03-07] MEDS ORDERED: FENTANYL CITRATE/PF 100MCG/2 ML INJ ONE ×2 (08:38→09:24)
[2025-03-07] MEDS ORDERED: EPHEDRINE SULFATE INJ 50 MG/ML VIAL ONE (08:39)
[2025-03-07] MEDS ORDERED: GLYCOPYRROLATE INJ 0.2 MG/ML VIAL ONE (08:49)
[2025-03-07] MEDS ORDERED: SODIUM CHLORIDE 0.9% 100 ML ONE (09:14)
[2025-03-07] MEDS ORDERED: PHENYLEPHRINE HCL 1% 10 MG/ML VIAL ONE (09:14)
[2025-03-07] MEDS ORDERED: ACETAMINOPHEN 1000 MG/100 ML IV PRN (09:15)
[2025-03-07] MEDS ORDERED: MIDAZOLAM HCL 2 MG/2 ML VIAL ONE (09:25)
[2025-03-07] MEDS: SODIUM CHLORIDE 0.9% 1000ML 1,000 ML IV SCH (17:00)
[2025-03-08] VITALS (8 sets, daily range): BP systolic 118–148; BP diastolic 54–74; PULSE 71–86; RESP 17–18; TEMP 97.7–98.4; O2SAT 98–100
[2025-03-08] MEDS: COLLAGENASE 5 GM TUBE TOP PRN (12:36)
[2025-03-09] VITALS: BP 148/67; PULSE 90; RESP 18; TEMP 98.4; O2SAT 98
[2025-03-09 04:00] VITALS: BP 146/85; PULSE 99; RESP 18; TEMP 98.2; O2SAT 100
[2025-03-09 08:00] VITALS: BP 139/80; PULSE 93; RESP 17; TEMP 97.7; O2SAT 100
[2025-03-09 09:00] VITALS: BP 139/80; PULSE 93; RESP 17; TEMP 97.7; O2SAT 100
== END 2025-03-09 09:25 | disposition hospice, home (50) | DRG 393 ==
LOC: ER 04:21 → ERHOLD 04:50 → MED/SURG2 07:22 → OBSVTOIN 03-06 12:15
PROVIDERS: ADMIT Internal Medicine; ATTEND Internal Medicine
PROC: 02HV33Z Insertion of Infusion Device into Superior Vena Cava, Percutaneous Approach (ICD-10-PCS; 2025-03-05)
PROC: 0DH63UZ Insertion of Feeding Device into Stomach, Percutaneous Approach (ICD-10-PCS; principal; 2025-03-07 08:31)
DX: Z43.1 Encounter for attention to gastrostomy (principal); E43 Unspecified severe protein-calorie malnutrition; G93.41 Metabolic encephalopathy; G30.9 Alzheimer's disease, unspecified; F02.811 Dementia in other diseases classified elsewhere, unspecified severity, with agitation; Z68.1 Body mass index [BMI] 19.9 or less, adult; R62.7 Adult failure to thrive; L89.151 Pressure ulcer of sacral region, stage 1; E11.9 Type 2 diabetes mellitus without complications; D64.9 Anemia, unspecified; K20.90 Esophagitis, unspecified without bleeding; K29.70 Gastritis, unspecified, without bleeding; R53.81 Other malaise; Z74.01 Bed confinement status
CPT/HCPCS: 36415; 43246; 71045; 74470; 75984; 80048; 82948; 85025; 85610; 85730; 94799; 96372; 99252; 99284; G0378; J2003; J2250; J2371; J7030; J7042; J7050; J7799; Q9967